=== PATIENT | female | born 1995 | race Caucasian/White ===

== ENCOUNTER 2022-07-26 20:58 | Emergency (ER) | payer BC, SELFPAY ==
--- NOTE | ~2022-07-26 | XR_ITS ---
EXAMINATION: XR CHEST CLINICAL INFORMATION: Shortness of breath COMPARISON: None TECHNIQUE: 2 views of the chest were obtained. FINDINGS: Mild right lower lobe opacity. Small area of atelectasis or infiltrate would need to be considered. Left lung is grossly clear. There is no pneumothorax or effusion. The cardiac silhouette is within normal limits. The hilar structures do not appear pathologically enlarged. XR/XR chest 2V IMPRESSION: Findings suggest small area of right lower lobe atelectasis/infiltrate
[2022-07-26 21:10] VITALS: BP 145/66; PULSE 93; RESP 20; TEMP 36.9; O2SAT 97; BMI 36.6
[2022-07-26 21:27] LABS: COVID-19 Test Negative (Negative)
[2022-07-26] MEDS: Albuterol Sulfate (0.083%) 2.5 MG/3 ML VIAL.NEB INHALE (21:55)
[2022-07-26 22:41] VITALS: PULSE 101; RESP 20; O2SAT 97
[2022-07-27 01:00] VITALS: BP 105/65; PULSE 66; RESP 18; O2SAT 99
--- NOTE | 2022-07-27 01:14 | ED.URI ---
HPI - URI/Sore Throat General Chief Complaint: Upper Respiratory Symptoms Stated Complaint: Sob/Fever/Sore throat Time Seen by Provider: 07/27/22 01:08 Source: patient Mode of arrival: ambulatory Limitations: no limitations History of Present Illness HPI Narrative: 26-year-old female came in for evaluation of upper respiratory symptoms. Symptoms started 4 days ago runny nose, nasal congestion, coughing with clear sputum, subjective fever, no chills, no sick contact, no recent travel. Patient was seen at an urgent care 3 days ago diagnosed with bronchitis patient was instructed if not feeling well to come to the hospital. Patient with a known history of asthma. Related Data Previous Rx's Medication Instructions Recorded albuterol sulfate 90 mcg/actuation 1 inh inhalation Q4-6H PRN 07/27/22 breath activated powder shortness of breath or wheezing #1 inhaler,sensor ea azithromycin 250 mg tablet See Rx Instructions PO .COMPLEX #6 07/27/22 (Zithromax Z-Umang) tabs prednisone 20 mg tablet 20 mg PO BID #10 tabs 07/27/22 Allergies Allergy/AdvReac Type Severity Reaction Status Date / Time No Known Allergies Allergy Verified 07/26/22 21:12 Review of Systems Review of Systems: All other systems are reviewed and are negative Constitutional: Reports as per HPI and Reports no additional constitutional complaints Eyes: Reports as per HPI and Reports no additional eye complaints Reports system reviewed and no additional complaints, except as documented Cardiovascular: Reports as per HPI and Reports no additional cardiovascular complaints Respiratory: Reports as per HPI and Reports no additional respiratory complaints Gastrointestinal: Reports as per HPI and Reports no additional gastrointestinal complaints Genitourinary: Reports no additional female genitourinary complaints Musculoskeletal: Reports no additional musculoskeletal complaints Skin/Breast: Reports system reviewed and no additional complaints, except as docu Psychiatric: Reports no additional psychiatric complaints Endocrine: Reports no additional endocrine complaints Hematologic/Lymphatic: Reports no additional hematologic/lymphatic complaints Allergic/Immunologic: Reports no additional allergic/immunologic complaints Reports system reviewed and no additional complaints, except as documented and Reports Abnormal speech present Physical Exam Vital Signs: Vital Signs: Last Vital Signs Temp 98.5 F 07/26/22 21:10 Pulse 66 07/27/22 01:00 Resp 18 07/27/22 01:00 BP 105/65 07/27/22 01:00 Pulse Ox 99 07/27/22 01:00 O2 Del Method 07/27/22 01:00 BMI result Body Mass Index 36.6 Vital signs have been reviewed as appeared to be correct. Blood pressure normal. Heart rate normal. Respiration rate normal. Temperature normal. Oxygen saturation normal. Appearance: Alert. Oriented X3. No acute distress. Head: Normal external exam. Normocephalic. Atraumatic. No Mccann signs noted. No raccoon eyes noted Eyes: PERRLA. EOMI. Conjunctiva and sclera normal. Eyelids normal. ENT: TM's Normal. Pharynx normal. Uvula midline. Moist mucous membranes. No trismus noted. No drooling noted. No muffled voice noted. Neck: Normal inspection. Neck supple. FROM. No adenopathy. Thyroid Normal. No meningeal signs. No neck mass noted. CVS: Normal heart rate and rhythm. Heart sound normal. No murmurs noted. Pulses normal throughout. Respiratory: No respiratory distress. Painless inspiration. Breath sounds normal. Mild diffuse expiratory wheezing with prolonged expiration.. Chest nontender. No accessory muscle usage noted or decreased air movement noted. Abdomen: Soft and nontender. Bowel sounds normal in all 4 quadrants. No distention noted. No organomegaly noted. No visible injury noted. Back: No CVA tenderness. Full range of motion noted. Skin: Skin warm and dry. Normal skin color. Normal skin turgor. No rashes/lesions/lacerations noted. Extremities: No lower extremity edema. Extremities exhibit normal range of motion. Extremities nontender. Neuro: Oriented X 3. Cranial nerve exam: II-XII are grossly intact No motor deficit. No sensory deficit. Reflexes normal. Course Course Course Narrative: 26-year-old female with history of asthma presented with upper respiratory symptoms for 4 days, patient has stable vital signs, no risk for PE, physical exam and chest x-ray is consistent with bronchopneumonia. Will start the patient on Z-Umang/prednisone/bronchodilator. MDM - URI/Sore Throat Lab Data Attestation: I reviewed the patient's lab results. Labs: Lab Results 07/26/22 Range/Units 21:06 COVID-19 ([facility]) Negative (Negative) COVID-19 Clin Com See Note Imaging Data Chest x-ray: Attestation: I personally reviewed and interpreted this imaging study as follows: Radiologist's impression: Findings suggest small area of right lower lobe atelectasis/infiltrate Discharge Plan Discharge Clinical Impression: Upper respiratory infection, Pneumonia Patient Disposition: Home, Self-Care Instructions: Community Acquired Pneumonia (ED) Prescriptions: New azithromycin [Zithromax Z-Umang] 250 mg tablet See Rx Instructions .ROUTE .COMPLEX Qty: 6 0RF Rx Instructions: For 250 mg dose pack: take 500 mg today (day 1), then 250 mg for 4 days (days 2-5) prednisone 20 mg tablet 20 mg PO BID Qty: 10 0RF albuterol sulfate 90 mcg/actuation aero powdr breath act w/sensor 1 inh inhalation Q4-6H PRN (Reason: shortness of breath or wheezing) Qty: 1 0RF Referrals: Physician,None [Primary Care Provider] - Stand Alone Forms: Work/School Release
[2022-07-27] MEDS: predniSONE 20 MG TABLET PO (01:29)
[2022-07-27] MEDS: Azithromycin 500 MG TABLET PO (01:29)
== END 2022-07-27 01:30 | disposition home or self-care (01) ==
PROVIDERS: Emergency Provider Emergency Medicine
DX: J06.9 Acute upper respiratory infection, unspecified (principal); J18.9 Pneumonia, unspecified organism; Z20.822 Contact with and (suspected) exposure to COVID-19; R06.02 Shortness of breath; J02.9 Acute pharyngitis, unspecified
CPT/HCPCS: 71046; 87635; 99282; 99284